=== PATIENT | female | born 1995 | race Caucasian/White ===

== ENCOUNTER 2023-03-16 21:35 | Emergency (ER) | payer SELFPAY ==
[~2023-03-16] VITALS: Ht 162.6 cm; Wt 52.2 kg
[2023-03-16 21:43] VITALS: BP 137/82
[2023-03-16 22:17] LABS: Source, Urine Clean Catch
[2023-03-16 22:28] LABS: Bilirubin, Urine Neg (Neg); Blood, Urine Neg (Neg); Glucose Qualitative, Urine Neg (Neg); Ketones, Urine Neg (Neg); Leukocyte Esterase, Urine Neg (Neg); Nitrite, Urine Neg (Neg); Protein, Urine Neg (Neg); Specific Gravity, Urine 1.015 (1.003-1.022); Urobilinogen, Urine NORM (Normal); pH, Urine 6.5 (5.0-8.0)
[2023-03-16 22:43] LABS: Albumin, Blood 4.3 g/dL (3.4-5.0); Albumin/Globulin Ratio 1.2 (0.8-1.8); Bilirubin, Total 0.5 mg/dL (0.1-1.0); Bun/Creatinine Ratio 9.3 (12.0-20.0); Creatinine, Blood 0.75 mg/dL (0.40-1.00); Globulin, Blood 3.5 g/dL (2.2-4.0); Potassium, Blood 3.5 mmol/L (3.5-5.5); Total Protein, Blood 7.8 g/dL (6.4-8.2)
[2023-03-16 23:01] LABS: Appearance, Urine Clear (Clear); Color, Urine Pale Yellow (P-Yellow)
[2023-03-16 23:08] LABS: BASOPHILS ABSOLUTE AUTO 0.07 K/mm3 (0.00-0.23); BASOPHILS PERCENT AUTO 1 % (0-2); EOSINOPHILS ABSOLUTE AUTO 0.13 K/mm3 (0.00-0.68); EOSINOPHILS PERCENT AUTO 1 % (0-6); Hematocrit 43.6 % (33.0-51.0); Hemoglobin 14.8 g/dL (11.5-16.0); IMMATURE GRAN ABSOLUTE AUTO 0.02 K/mm3 (0.00-0.10); IMMATURE GRAN PERCENT AUTO 0 % (0-1); LYMPHOCYTES ABSOLUTE AUTO 3.69 K/mm3 (0.84-5.20); LYMPHOCYTES PERCENT AUTO 40 % (21-46); MONOCYTES ABSOLUTE AUTO 0.61 K/mm3 (0.16-1.47); MONOCYTES PERCENT AUTO 7 % (4-13); Mean Corpuscular HGB 30.1 pg (26.0-34.0); Mean Corpuscular HGB Conc 33.9 g/dL (31.5-36.5); Mean Corpuscular Volume 89 fL (80-100); Mean Platelet Volume 10.3 fL (9.1-12.4); NEUTROPHILS ABSOLUTE AUTO 4.78 K/mm3 (1.96-9.15); NEUTROPHILS PERCENT AUTO 51 % (41-73); Platelet Count 277 K/mm3 (150-400); RDW Coefficient Variation 11.5 % (11.7-14.2); RDW Standard Deviation 36.7 fL (35.1-46.3); Red Blood Cell Count 4.92 M/mm3 (3.80-5.20)
== END 2023-03-17 00:40 | disposition home or self-care (01) ==
LOC: ER 21:35
PROVIDERS: Student in an Organized Health Care Education/Training Program
DX: R10.32 Left lower quadrant pain (principal); F17.200 Nicotine dependence, unspecified, uncomplicated
CPT/HCPCS: 80053; 81003; 81025; 83690; 85025; 90471; 99284; J1885

== ENCOUNTER → 2024-12-09 | Outpatient (CLI) | payer OTHER ==
[2024-12-09 16:32] LABS: BASOPHILS ABSOLUTE AUTO 0.04 K/mm3 (0.00-0.23); BASOPHILS PERCENT AUTO 0 % (0-2); EOSINOPHILS ABSOLUTE AUTO 0.12 K/mm3 (0.00-0.68); EOSINOPHILS PERCENT AUTO 1 % (0-6); Hematocrit 37.2 % (33.0-51.0); Hemoglobin 12.3 g/dL (11.5-16.0); IMMATURE GRAN ABSOLUTE AUTO 0.18 K/mm3 (0.00-0.10); IMMATURE GRAN PERCENT AUTO 2 % (0-1); LYMPHOCYTES ABSOLUTE AUTO 1.55 K/mm3 (0.84-5.20); LYMPHOCYTES PERCENT AUTO 13 % (21-46); MONOCYTES ABSOLUTE AUTO 0.63 K/mm3 (0.16-1.47); MONOCYTES PERCENT AUTO 5 % (4-13); Mean Corpuscular HGB 30.1 pg (26.0-34.0); Mean Corpuscular HGB Conc 33.1 g/dL (31.5-36.5); Mean Corpuscular Volume 91 fL (80-100); Mean Platelet Volume 10.4 fL (9.1-12.4); NEUTROPHILS ABSOLUTE AUTO 9.26 K/mm3 (1.96-9.15); NEUTROPHILS PERCENT AUTO 79 % (41-73); Platelet Count 219 K/mm3 (150-400); RDW Coefficient Variation 13.2 % (11.7-14.2); RDW Standard Deviation 43.3 fL (35.1-46.3); Red Blood Cell Count 4.09 M/mm3 (3.80-5.20); White Blood Cell Count 11.78 K/mm3 (4.00-11.30)
== END | disposition home or self-care (01) ==
LOC: LAB SHORT 12:00 → LAB 12:00
PROVIDERS: Advanced Practice Midwife
DX: Z34.92 Encounter for supervision of normal pregnancy, unspecified, second trimester (principal)
CPT/HCPCS: 82950; 85025

== ENCOUNTER 2025-03-08 23:48 | Inpatient (IN) | payer OTHER ==
[~2025-03-08] VITALS: Ht 165.1 cm; Wt 68.6 kg
[2025-03-09] VITALS (38 sets, daily range): BP systolic 100–136; BP diastolic 51–80
[2025-03-09] MEDS ORDERED: PRENATAL 19 TA1 EAC3 PO (02:18)
[2025-03-09] MEDS ORDERED: Acetaminophen 500 MG Tab PO PRN (02:20)
[2025-03-09] MEDS ORDERED: Carboprost Tromethamine 250 MCG/ML 1ML Amp IM PRN (02:20)
[2025-03-09] MEDS ORDERED: Methylergonovine Maleate 0.2MG / ML 1ML Amp IM PRN (02:20)
[2025-03-09] MEDS ORDERED: Lactated Ringer's 1,000 ML IV PRN ×3 (02:20→03:55)
[2025-03-09] MEDS ORDERED: Misoprostol 200 MCG Tab PR PRN (02:20)
[2025-03-09] MEDS ORDERED: OXYTOCIN/RINGER'S LACTATE 500 ML IV PRN (02:20)
[2025-03-09] MEDS ORDERED: Ondansetron HCl 2 MG / ML 2ML Vial IV PRN (02:20)
[2025-03-09] MEDS ORDERED: Misoprostol 200 MCG Tab BC PRN (02:20)
[2025-03-09] MEDS ORDERED: Oxytocin 10 Unit / ML Vial IM PRN (02:20)
[2025-03-09] MEDS ORDERED: Tranexamic Acid 100 ML IV SCH (02:20)
[2025-03-09] MEDS ORDERED: Calcium Carbonate 500 MG Tab Chew PO PRN (02:20)
[2025-03-09 02:46] LABS: BASOPHILS ABSOLUTE AUTO 0.05 K/mm3 (0.00-0.23); BASOPHILS PERCENT AUTO 0 % (0-2); EOSINOPHILS ABSOLUTE AUTO 0.09 K/mm3 (0.00-0.68); EOSINOPHILS PERCENT AUTO 1 % (0-6); Hematocrit 35.5 % (33.0-51.0); Hemoglobin 12.5 g/dL (11.5-16.0); IMMATURE GRAN ABSOLUTE AUTO 0.16 K/mm3 (0.00-0.10); IMMATURE GRAN PERCENT AUTO 1 % (0-1); LYMPHOCYTES ABSOLUTE AUTO 1.68 K/mm3 (0.84-5.20); LYMPHOCYTES PERCENT AUTO 11 % (21-46); MONOCYTES ABSOLUTE AUTO 0.88 K/mm3 (0.16-1.47); MONOCYTES PERCENT AUTO 6 % (4-13); Mean Corpuscular HGB 30.3 pg (26.0-34.0); Mean Corpuscular HGB Conc 35.2 g/dL (31.5-36.5); Mean Corpuscular Volume 86 fL (80-100); Mean Platelet Volume 10.4 fL (9.1-12.4); NEUTROPHILS ABSOLUTE AUTO 11.99 K/mm3 (1.96-9.15); NEUTROPHILS PERCENT AUTO 81 % (41-73); Platelet Count 207 K/mm3 (150-400); RDW Coefficient Variation 13.2 % (11.7-14.2); RDW Standard Deviation 41.1 fL (35.1-46.3); Red Blood Cell Count 4.12 M/mm3 (3.80-5.20); White Blood Cell Count 14.85 K/mm3 (4.00-11.30)
[2025-03-09] MEDS ORDERED: FentaNYL 2mcg/ml-Bup 0.1% Epd 250 ML EPI PRN (03:55)
[2025-03-09] MEDS ORDERED: ePHEDrine Sulfate 50 MG/ML 1ML Injection XX PRN (03:55)
[2025-03-09] MEDS ORDERED: FentaNYL Citrate 50 MCG/ML 2 ML Injection ONE (04:45)
[2025-03-09] MEDS ORDERED: Witch Hazel/Glycerin PADS TOP PRN (13:25)
[2025-03-09] MEDS ORDERED: Lanolin Cream TOP PRN (13:25)
[2025-03-09] MEDS ORDERED: Docusate Sodium 100 MG Cap PO PRN (13:25)
[2025-03-09] MEDS ORDERED: Ketorolac Tromethamine 30mg Vial IV PRN (13:30)
[2025-03-09] MEDS ORDERED: Witch Hazel/Glycerin PADS TOP SCH (13:35)
[2025-03-09] MEDS ORDERED: OxyCODONE 5 mg/Acetamin 325 mg TABLET PO PRN (13:40)
[2025-03-09] MEDS ORDERED: Acetaminophen 325 MG TABLET PO PRN (13:40)
[2025-03-09] MEDS ORDERED: Benzocaine Topical Anesthetic Spray 60GM TOP PRN (13:40)
[2025-03-09] MEDS ORDERED: Ibuprofen 400 MG Tab PO PRN (13:40)
[2025-03-09] MEDS ORDERED: Magnesium Hydroxide Conc 10 ML UDC PO ONE (15:40)
[2025-03-09] MEDS ORDERED: Magnesium Hydroxide Conc 10 ML UDC PO SCH (21:00)
[2025-03-09] MEDS ORDERED: Amoxicillin/Clavulanate K 875 MG Tab PO SCH (21:00)
[2025-03-10 00:39] VITALS: BP 123/58
[2025-03-10 05:05] VITALS: BP 109/58
[2025-03-10 08:07] LABS: BASOPHILS ABSOLUTE AUTO 0.05 K/mm3 (0.00-0.23); BASOPHILS PERCENT AUTO 0 % (0-2); EOSINOPHILS ABSOLUTE AUTO 0.12 K/mm3 (0.00-0.68); EOSINOPHILS PERCENT AUTO 1 % (0-6); Hematocrit 34.6 % (33.0-51.0); Hemoglobin 11.7 g/dL (11.5-16.0); IMMATURE GRAN ABSOLUTE AUTO 0.12 K/mm3 (0.00-0.10); IMMATURE GRAN PERCENT AUTO 1 % (0-1); LYMPHOCYTES ABSOLUTE AUTO 1.75 K/mm3 (0.84-5.20); LYMPHOCYTES PERCENT AUTO 11 % (21-46); MONOCYTES ABSOLUTE AUTO 1.02 K/mm3 (0.16-1.47); MONOCYTES PERCENT AUTO 7 % (4-13); Mean Corpuscular HGB 30.6 pg (26.0-34.0); Mean Corpuscular HGB Conc 33.8 g/dL (31.5-36.5); Mean Platelet Volume 10.5 fL (9.1-12.4); NEUTROPHILS ABSOLUTE AUTO 12.71 K/mm3 (1.96-9.15); NEUTROPHILS PERCENT AUTO 81 % (41-73); Platelet Count 188 K/mm3 (150-400); RDW Coefficient Variation 13.4 % (11.7-14.2); RDW Standard Deviation 44.3 fL (35.1-46.3); Red Blood Cell Count 3.82 M/mm3 (3.80-5.20); White Blood Cell Count 15.77 K/mm3 (4.00-11.30)
[2025-03-10 08:15] LABS: Mean Corpuscular Volume 91 fL (80-100)
[2025-03-10 08:18] VITALS: BP 129/74
--- NOTE | 2025-03-10 08:31 | NUR ---
PT HAS A 4TH DEGREE REPAIR. RON SELF CARE WELL. EDGES APPROXIMATED. PT CONCERNED ABOUT BM. MEDS GIVEN AND DISCUSSED CARE. VERBALIZES UNDERSTANDING
[2025-03-10] MEDS ORDERED: Prenatal Vit/FE Fumarate/FA 1 Tab PO SCH (09:00)
[2025-03-10] MEDS ORDERED: Amoxicillin/Clavulanate K 875 MG Tab PO ONE (09:25)
[2025-03-10 11:25] VITALS: BP 115/59
[2025-03-10] MEDS ORDERED: IBU800 MG PO (12:54)
[2025-03-10] MEDS ORDERED: DULCOLAX400 MG/5 M PO (12:54)
[2025-03-10] MEDS ORDERED: DOCU100 PO (12:54)
--- NOTE | 2025-03-10 13:44 | NUR ---
D/C HOME WITH BABY
== END 2025-03-10 13:45 | disposition home or self-care (01) | DRG 768 ==
LOC: OBS 23:48 → BC 23:56 → OBS 03-09 02:17 → BC 03-09 02:17
PROVIDERS: ADMIT Advanced Practice Midwife
PROC: 10E0XZZ Delivery of Products of Conception, External Approach (ICD-10-PCS; principal; 2025-03-09)
PROC: 0DQP0ZZ Repair Rectum, Open Approach (ICD-10-PCS; 2025-03-09)
PROC: 3E0R3BZ Introduction of Anesthetic Agent into Spinal Canal, Percutaneous Approach (ICD-10-PCS; 2025-03-09)
PROC: 00HU33Z Insertion of Infusion Device into Spinal Canal, Percutaneous Approach (ICD-10-PCS; 2025-03-09)
DX: O48.0 Post-term pregnancy (principal); Z37.0 Single live birth; O70.3 Fourth degree perineal laceration during delivery; Z3A.40 40 weeks gestation of pregnancy
CPT/HCPCS: 36415; 51702; 59025; 81003; 85025; 86850; 86900; 86901; 99214; A9270; J1885; J7120